=== PATIENT | male | born 1955 | race Caucasian/White ===

== ENCOUNTER 2016-09-21 06:09 | Emergency (ER) | payer SELFPAY ==
[~2016-09-21] VITALS: Ht 167.6 cm; Wt 68.2 kg
[2016-09-21 08:12] VITALS: BP 125/79
== END 2016-09-21 08:25 | disposition home or self-care (01) ==
LOC: EMS 06:10
DX: T63.301A Toxic effect of unspecified spider venom, accidental (unintentional), initial encounter (principal); S21.259A Open bite of unspecified back wall of thorax without penetration into thoracic cavity, initial encounter; F17.210 Nicotine dependence, cigarettes, uncomplicated; F12.90 Cannabis use, unspecified, uncomplicated; W57.XXXA Bitten or stung by nonvenomous insect and other nonvenomous arthropods, initial encounter; Y93.89 Activity, other specified; Y92.89 Other specified places as the place of occurrence of the external cause; Y99.8 Other external cause status
CPT/HCPCS: 99283